=== PATIENT | male | born 1945 | race Caucasian/White ===

== ENCOUNTER 2016-07-23 08:20 | Day surgery (SDC) | payer MEDICARE ==
--- NOTE | ~2016-07-23 | EGD ---
EGD REPORT [facility] [address] [place] [address] NAME: CONOR BEGUM : 43 STATUS : REG [facility]#: [id number] AGE: 71 ADM/REG DATE : 07/23/16 MR#: [id number] REPORT SERV DATE: 07/23/16 DICTATED BY: SATNAM PATE DATE: 07/23/16 REPORT STATUS : Draft TRANSCRIBED [facility]: [facility] DATE: 07/23/16 Endoscopy Center Patient Name: Conor Begum Date of : 1945 Attending MD: SATNAM PATE MD Procedure Date No Time: 07/23/2016 Procedure: Upper GI endoscopy Indications: Dysphagia Referring MD: STUART ORELLANA III Medicines: Propofol per Anesthesia Complications: No immediate complications. Procedure: Pre-Anesthesia Assessment: - ASA Grade Assessment: III - A patient with severe systemic disease. After obtaining informed consent, the endoscope was passed under direct vision. Throughout the procedure, the patient's blood pressure, pulse, and oxygen saturations were monitored continuously. The GIF H190 [id number] was introduced through the mouth, and advanced to the duodenal bulb. The upper GI endoscopy was accomplished without difficulty. The patient tolerated the procedure well. Findings: The hypopharynx was normal. A benign-appearing, intrinsic severe stenosis measuring 1 cm (in length) x 5 mm (inner diameter) was found at the gastroesophageal junction and was traversed after dilation. A TTS dilator was passed through the scope. Dilation with a 10-11-12 mm balloon (to a maximum balloon size of 12 mm) dilator was performed. Estimated blood loss was minimal. Diffuse atrophic mucosa was found in the entire examined stomach. The examined duodenum was normal. Impression: - Normal hypopharynx. - Benign-appearing esophageal stricture. Dilated. - Gastric mucosal atrophy. - Normal examined duodenum. Recommendation: - Soft diet today. - Repeat the upper endoscopy in 2 weeks for retreatment. - The findings and recommendations were discussed with the patient and their family. - Continue present medications. - After the procedure, if you experience any pain in abdomen or chest,shortness of breath,fever,chills,blood EGD REPORT [address] [address] NAME: DIMITRICONOR Julien : 43 STATUS : REG [facility] PAT#: [id number] AGE: 71 ADM/REG DATE : 07/23/16 MR#: [id number] REPORT SERV DATE: 07/23/16 DICTATED BY: SATNAM PATE. DATE: 07/23/16 REPORT STATUS : Draft TRANSCRIBED BY: [employer] DATE: 07/23/16 in stool,rectal bleeding,vomiting of any material,nausea,black stools or weakness or dizziness, GO TO THE EMERGENCY IMMEDIATELY!!!!!!!!! Procedure Code(s): --- Professional --- 43470, Esophagogastroduodenoscopy, flexible, transoral; with transendoscopic balloon dilation of esophagus (less than 30 mm diameter) Diagnosis Code(s): --- Professional --- K22.2, Esophageal obstruction K31.89, Other diseases of stomach and duodenum R13.10, Dysphagia, unspecified CPT copyright 2013 [employer]. All rights reserved. The codes documented in this report are preliminary and upon men's and boys' clothing salesperson review may be revised to meet current compliance requirements. Satnam Pate MD SATNAM PATE MD 07/23/2016 10:05 AM This report has been signed electronically. Number of Addenda: 0 Note Initiated On: 07/23/2016 9:42 AM Scope Withdrawal Time 0 hours 0 minutes 0 seconds [id number] [place] [id number]
[~2016-07-23 08:20] MED LIST: ADVIL PO; ALBUTEROL5 INH; ALEVE220 MG PO; COZ50 PO; JANUMET XR 50-1 EACH PO; LEVEMIR SC; NEUR300 PO; OXYCON10 PO; PROAIR HFA INH; PROTONIX PO; SYMBICORT 160/41 INH INH; VICODINTAB PO; X25 PO; XOLAIR SC
[2016-07-29] MEDS ORDERED: LINZESS 145 M145 MCG PO (15:30)
[2016-09-05] MEDS ORDERED: MEDS (11:01)
[2016-11-18] MEDS ORDERED: KLONO1 PO (08:35)
[2016-11-18] MEDS ORDERED: ZESTRIL10 MG PO (08:36)
== END 2016-07-23 23:59 | disposition home or self-care (01) ==
LOC: DMU 08:20
PROVIDERS: Internal Medicine Gastroenterology
PROC: 0D748ZZ Dilation of Esophagogastric Junction, Via Natural or Artificial Opening Endoscopic (ICD-10-PCS; principal; 2016-07-23 10:30)
DX: K22.2 Esophageal obstruction (principal); K31.89 Other diseases of stomach and duodenum; I10 Essential (primary) hypertension; K21.9 Gastro-esophageal reflux disease without esophagitis; E11.9 Type 2 diabetes mellitus without complications; Z79.4 Long term (current) use of insulin; Z79.891 Long term (current) use of opiate analgesic; Z79.899 Other long term (current) drug therapy; Z98.890 Other specified postprocedural states
CPT/HCPCS: 82962; C1726

== ENCOUNTER 2016-08-06 09:44 | Day surgery (SDC) | payer MEDICARE ==
--- NOTE | ~2016-08-06 | EGD ---
EGD REPORT [facility] [address] [place] [address] NAME: CONOR BEGUM : 43 STATUS : REG [facility]#: [id number] AGE: 71 ADM/REG DATE : 08/06/16 MR#: [id number] REPORT SERV DATE: 08/06/16 DICTATED BY: SATNAM PATE DATE: 08/06/16 REPORT STATUS : Draft [facility]ANSCRIBED [facility]: [facility] DATE: 08/06/16 Endoscopy Center Patient Name: Conor Begum Date of : 1945 Attending MD: SATNAM PATE MD Procedure Date No Time: 08/06/2016 Procedure: Upper GI endoscopy Indications: For therapy of esophageal stenosis Referring MD: STUART ORELLANA III Medicines: Propofol per Anesthesia Complications: No immediate complications. Procedure: Pre-Anesthesia Assessment: - ASA Grade Assessment: III - A patient with severe systemic disease. After obtaining informed consent, the endoscope was passed under direct vision. Throughout the procedure, the patient's blood pressure, pulse, and oxygen saturations were monitored continuously. The GIF H190 [id number] was introduced through the mouth, and advanced to the duodenal bulb. The upper GI endoscopy was accomplished without difficulty. The patient tolerated the procedure well. Findings: A moderate stenosis measuring less than one cm (in length) x 6 mm (inner diameter) was found at the gastroesophageal junction and was traversed after dilation. A TTS dilator was passed through the scope. Dilation with a 12-13.5-15 mm balloon (to a maximum balloon size of 13.5 mm) dilator was performed. Estimated blood loss: none. Biopsies were taken with a cold forceps for histology. The exam of the stomach was otherwise normal. The examined duodenum was normal. The area of stenosis has whitish plaques on it which did not was off biopsies were taken to rule out dysplasia Impression: - Esophageal stricture. Dilated. Biopsied. - Normal examined duodenum. Recommendation: - The patient will be observed post-procedure, until all discharge criteria are met. - Continue present medications. - Await pathology results. - The findings and recommendations were discussed with the patient and their family. - After the procedure, if you experience any pain in EGD REPORT [address] [address] NAME: CONOR BEGUM Julien : 43 STATUS : REG [facility] PAT#: [id number] AGE: 71 ADM/REG DATE : 08/06/16 MR#: [id number] REPORT SERV DATE: 08/06/16 DICTATED BY: SATNAM PATE. DATE: 08/06/16 REPORT STATUS : Draft TRANSCRIBED BY: [employer] SERVICES DATE: 08/06/16 abdomen or chest,shortness of breath,fever,chills,blood in stool,rectal bleeding,vomiting of any material,nausea,black stools or weakness or dizziness, GO TO THE EMERGENCY IMMEDIATELY!!!!!!!!! Procedure Code(s): --- Professional --- 71326, Esophagogastroduodenoscopy, flexible, transoral; with transendoscopic balloon dilation of esophagus (less than 30 mm diameter) 00598, Esophagogastroduodenoscopy, flexible, transoral; with biopsy, single or multiple Diagnosis Code(s): --- Professional --- K22.2, Esophageal obstruction CPT copyright 2013 [employer]. All rights reserved. The codes documented in this report are preliminary and upon bilingual legal assistant review may be revised to meet current compliance requirements. Satnam Pate MD SATNAM PATE MD 08/06/2016 11:37 AM This report has been signed electronically. Number of Addenda: 0 Note Initiated On: 08/06/2016 10:55 AM Scope Withdrawal Time 0 hours 0 minutes 0 seconds [address] [place] [id number]
[~2016-08-06 09:44] MED LIST changes: +LINZESS 145 M145 MCG PO
[2016-09-05] MEDS ORDERED: MEDS (11:01)
[2016-11-18] MEDS ORDERED: KLONO1 PO (08:35)
[2016-11-18] MEDS ORDERED: ZESTRIL10 MG PO (08:36)
== END 2016-08-06 23:59 | disposition home or self-care (01) ==
LOC: DMU 09:44
PROVIDERS: Internal Medicine Gastroenterology
PROC: 0DB58ZX Excision of Esophagus, Via Natural or Artificial Opening Endoscopic, Diagnostic (ICD-10-PCS; principal; 2016-08-06 11:30)
PROC: 0D748ZZ Dilation of Esophagogastric Junction, Via Natural or Artificial Opening Endoscopic (ICD-10-PCS; 2016-08-06 11:30)
DX: K22.2 Esophageal obstruction (principal); K20.9 Esophagitis, unspecified; J44.9 Chronic obstructive pulmonary disease, unspecified; E11.9 Type 2 diabetes mellitus without complications; K21.9 Gastro-esophageal reflux disease without esophagitis; I10 Essential (primary) hypertension; Z79.4 Long term (current) use of insulin; Z79.891 Long term (current) use of opiate analgesic; Z79.899 Other long term (current) drug therapy; Z98.890 Other specified postprocedural states
CPT/HCPCS: 82962; 88305; C1726

== ENCOUNTER 2016-09-10 06:40 | Day surgery (SDC) | payer MEDICARE ==
--- NOTE | ~2016-09-10 | EGD ---
EGD REPORT [facility] [address] [place] [address] NAME: CONOR BEGUM : 43 STATUS : REG [facility]#: [id number] AGE: 71 ADM/REG DATE : 09/10/16 MR#: [id number] REPORT SERV DATE: 09/10/16 DICTATED BY: SATNAM PATE DATE: 09/10/16 REPORT STATUS : Draft TRANSCRIBED BY: [facility] DATE: 09/10/16 Endoscopy Center Patient Name: Conor Begum Date of : 1945 Attending MD: SATNAM PATE MD Procedure Date No Time: 09/10/2016 Procedure: Upper GI endoscopy Indications: Dysphagia Referring MD: STUART ORELLANA III Medicines: Propofol per Anesthesia Complications: No immediate complications. Procedure: Pre-Anesthesia Assessment: - ASA Grade Assessment: III - A patient with severe systemic disease. After obtaining informed consent, the endoscope was passed under direct vision. Throughout the procedure, the patient's blood pressure, pulse, and oxygen saturations were monitored continuously. The GIF H190 [id number] was introduced through the mouth, and advanced to the antrum of the stomach. The upper GI endoscopy was accomplished without difficulty. The patient tolerated the procedure well. Findings: A benign-appearing, intrinsic moderate stenosis measuring less than one cm (in length) x 7 mm (inner diameter) was found at the gastroesophageal junction and was non-traversed. A TTS dilator was passed through the scope. Dilation with a 12-13.5-15 mm balloon (to a maximum balloon size of 13.5 mm) dilator was performed. Estimated blood loss: none. Esophagitis had healed. THe stenosis was short and web like The entire examined stomach was normal. Impression: - Benign-appearing esophageal stricture. Dilated. - Normal stomach. Recommendation: - The patient will be observed post-procedure, until all discharge criteria are met. - Continue present medications. - Repeat the upper endoscopy in 8 weeks for retreatment. - The findings and recommendations were discussed with the patient and their family. - After the procedure, if you experience any pain in abdomen or chest,shortness of breath,fever,chills,blood in stool,rectal bleeding,vomiting of any material,nausea,black stools or weakness or dizziness, EGD REPORT [address] [address] NAME: CONOR BEGUM : 43 STATUS : REG [facility]#: [id number] AGE: 71 ADM/REG DATE : 09/10/16 MR#: [id number] REPORT SERV DATE: 09/10/16 DICTATED BY: SATNAM PATE. DATE: 09/10/16 REPORT STATUS : Draft TRANSCRIBED BY: [employer] DATE: 09/10/16 GO TO THE EMERGENCY IMMEDIATELY!!!!!!!!! Procedure Code(s): --- Professional --- 24750, 52, Esophagogastroduodenoscopy, flexible, transoral; with transendoscopic balloon dilation of esophagus (less than 30 mm diameter) Diagnosis Code(s): --- Professional --- K22.2, Esophageal obstruction R13.10, Dysphagia, unspecified CPT copyright 2013 [employer]. All rights reserved. The codes documented in this report are preliminary and upon signal technician review may be revised to meet current compliance requirements. Satnam Pate MD SATNAM PATE MD 09/10/2016 8:42 AM This report has been signed electronically. Number of Addenda: 0 Note Initiated On: 09/10/2016 8:12 AM Scope Withdrawal Time 0 hours 0 minutes 0 seconds [address] [place] [id number]
[~2016-09-10 06:40] MED LIST changes: +MEDS
[2016-11-18] MEDS ORDERED: KLONO1 PO (08:35)
[2016-11-18] MEDS ORDERED: ZESTRIL10 MG PO (08:36)
== END 2016-09-10 23:59 | disposition home or self-care (01) ==
LOC: DMU 06:40
PROVIDERS: Internal Medicine Gastroenterology
PROC: 0D758ZZ Dilation of Esophagus, Via Natural or Artificial Opening Endoscopic (ICD-10-PCS; principal; 2016-09-10 08:30)
DX: K22.2 Esophageal obstruction (principal); K20.9 Esophagitis, unspecified; K21.9 Gastro-esophageal reflux disease without esophagitis; I10 Essential (primary) hypertension; J45.909 Unspecified asthma, uncomplicated; E11.9 Type 2 diabetes mellitus without complications; M19.90 Unspecified osteoarthritis, unspecified site; Z79.4 Long term (current) use of insulin; Z79.899 Other long term (current) drug therapy; Z98.890 Other specified postprocedural states
CPT/HCPCS: 82962; C1726